=== PATIENT | female | born 1950 | race Caucasian/White ===

== ENCOUNTER 2017-12-02 17:13 | Emergency (ER) | payer OTHER ==
[~2017-12-02] VITALS: Ht 160 cm; Wt 70.3 kg
[2017-12-02 17:15] VITALS: BP_SYST 138
--- NOTE | 2017-12-02 17:15 | NUR ---
BROUGHT BACK TO HALLWAY BED, TRIAGED. REPORT GIVEN TO BERNARDO
--- NOTE | 2017-12-02 17:20 | NUR ---
Pt AAOx4 ambulated into ED c/o laceration to R 1st digit s/p slamming finger in car door 30 min prior to arrival. Mild active bleeding present, pt reports tingling to site. No other injuries/complaints per pt/noted. at bedside. Will continue to monitor.
--- NOTE | 2017-12-02 17:55 | NUR ---
Medication administered. Pt tolerated well. No adverse reactions noted.
--- NOTE | 2017-12-02 17:58 | NUR ---
Moved to bed 07
[2017-12-02] MEDS ORDERED: BACITRACIN 1 GM OINT TP ONE (18:00)
[2017-12-02] MEDS ORDERED: SODIUM BICARBONATE 8.4% VIAL 50 MEQ/50 ML VIAL INJ ONE (18:00)
[2017-12-02] MEDS ORDERED: LIDOCAINE 1% 10 MG/ML, 20 ML MDV INJ ONE (18:00)
[2017-12-02] MEDS ORDERED: HYDROcodone/ACETAMIN 5-325 MG TAB (NORCO/ VICODIN) PO ONE (18:00)
--- NOTE | 2017-12-02 18:17 | NUR ---
Radiology at bedside.
[2017-12-02] MEDS ORDERED: CLINDAMYCIN PHOSPHATE 300 MG/2 ML VIAL IM ONE (18:30)
[2017-12-02] MEDS ORDERED: DIPH-TET Vacc 0.5 ML VIAL I.M. ONE (18:30)
[2017-12-02 19:25] VITALS: BP_SYST 128
--- NOTE | 2017-12-02 19:25 | NUR ---
Patient given written and verbal discharge instructions and verbalizes understanding. ER MD discussed with patient the results and treatment provided. Patient in stable condition. ID arm band removed. Rx of Bacitracin, Clindamycin, and Tylenol extra strength given. Patient educated on pain management and to follow up with PMD. Pain Scale 0. Opportunity for questions provided and answered. Medication side effect fact sheet provided.
== END 2017-12-02 19:25 | disposition home or self-care (01) ==
LOC: SED 17:13
DX: S61.210A Laceration without foreign body of right index finger without damage to nail, initial encounter (principal); I10 Essential (primary) hypertension; Z90.89 Acquired absence of other organs; Z88.1 Allergy status to other antibiotic agents; W23.0XXA Caught, crushed, jammed, or pinched between moving objects, initial encounter; Y93.89 Activity, other specified; Y92.89 Other specified places as the place of occurrence of the external cause; Y99.8 Other external cause status
CPT/HCPCS: 12001; 73140; 90471; 96372; 90714; 99284; J2001; J3490